=== PATIENT | female | born 1995 | race Hispanic/Latino ===

== ENCOUNTER → 2021-11-15 10:35 | Outpatient (CLI) | payer OTHER, SELFPAY ==
[2021-11-15 12:57] LABS: Pregnancy Test Urine Negative (Negative)
== END ==
PROVIDERS: PCP Registered Nurse; Referring Provider Registered Nurse; Visit Provider Registered Nurse
DX: Z30.40 Encounter for surveillance of contraceptives, unspecified (principal)
CPT/HCPCS: 81025